=== PATIENT | female | born 1965 | race Caucasian/White ===

== ENCOUNTER 2019-03-12 06:47 | Observation (INO) | payer OTHER ==
[2019-03-12] MEDS ORDERED: NITROGLYCERIN 0.4 MG/TAB SL ONE (07:13)
[2019-03-12] MEDS ORDERED: ASPIRIN 81 MG CHEWABLE TABLET ONE (07:13)
[2019-03-12 07:48] LABS: Absolute Lymphocytes (CBC) 3.2 K/uL (0.7-4.9); Basophils % 0.7 % (0-1.3); Hematocrit 38.1 % (36.0-45.0); MPV 8.8 fL (7.6-11.3); RBC Red Blood Cell Count 4.01 M/uL (3.86-4.86)
[2019-03-12 07:59] LABS: Protime INR 1.04
[2019-03-12 08:03] LABS: ALT/SGPT 37 U/L (12-78); AST/SGOT 20 U/L (15-37); Albumin 3.8 g/dL (3.4-5.0); Alkaline Phosphatase 48 U/L (45-117); BUN Blood Urea Nitrogen 15 mg/dL (7-18); Bicarbonate 26 mmol/L (21-32); Bilirubin Direct 0.1 mg/dL (0-0.2); Bilirubin Total 0.4 mg/dL (0.2-1.0); Glucose Level 103 mg/dL (74-106); Lipase 368 U/L (73-393); Magnesium 2.4 mg/dL (1.8-2.4); NT PRO-BNP 13 pg/mL (<125); Potassium 3.9 mmol/L (3.5-5.1); Protein, Total 7.2 g/dL (6.4-8.2); Sodium Level 142 mmol/L (136-145); Troponin (Emerg Dept Use Only) < 0.02 ng/mL (0.0-0.045)
--- NOTE | 2019-03-12 08:24 | ER ---
Nurse's Notes [facility] Name: Ambar Figueroa Age: 53 yrs Sex: Female : 1965 Arrival Date: 03/12/2019 Time: 06:50 Bed 6 Private MD: Diagnosis: Chest pain, unspecified Presentation: 03/12 06:58 Presenting complaint: Patient states: Pt reports shortness of breath and chest pain at ea 0530. Reports they just came back from [facility] yesterday. Transition of care: patient was not received from another setting of care. Onset of symptoms was March 12, 2019. Risk Assessment: Do you want to hurt yourself or someone else? Patient reports no desire to harm self or others. Initial Sepsis Screen: Does the patient meet any 2 criteria? No. Patient's initial sepsis screen is negative. Does the patient have a suspected source of infection? No. Patient's initial sepsis screen is negative. Care prior to arrival: None. 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 - Coronavirus screen:: The patient has NOT traveled to [place], [place], or [place] in the past 14 days. - Social history:: Smoking status: Patient denies any tobacco usage or history of. - Ebola Screening: : No symptoms or risks identified at this time. Screenin:00 Abuse screen: Denies threats or abuse. Nutritional screening: No deficits noted. ea Tuberculosis screening: No symptoms or risk factors identified. Fall Risk None identified. Assessment: 07:05 General: Appears in no apparent distress. comfortable, Behavior is calm, cooperative, em appropriate for age. Pain: Complains of pain in chest Pain radiates to back Pain currently is 4 out of 10 on a pain scale. Pain began 2 hours ago. Neuro: Level of Consciousness is awake, alert, obeys commands, Oriented to person, place, time, situation, Appropriate for age. Cardiovascular: Reports nausea, shortness of breath, Capillary refill < 3 seconds Patient's skin is warm and dry. Rhythm is sinus rhythm. Respiratory: Airway is patent Respiratory effort is even, unlabored, Respiratory pattern is regular, symmetrical. GI: Abd is soft and non tender X 4 quads. Derm: Skin is intact, is healthy with good turgor, Skin is pink, warm \\T\\ dry. Musculoskeletal: Capillary refill < 3 seconds, Range of motion: intact in all extremities. 07:25 Reassessment: reports nitro helped chest pain, reports pain is "relaxed, not really in em pain," pt asked about doing a test for blood clots due to recent travel, provider notified of pt request. 08:44 Reassessment: Patient appears in no apparent distress at this time. Patient and/or em family updated on plan of care and expected duration. Pain level reassessed. Patient is alert, oriented x 3, equal unlabored respirations, skin warm/dry/pink. Patient denies pain at this time. Patient states feeling better. Patient states symptoms have improved. 09:00 Reassessment: Dr. Crisostomo at bedside. em 10:00 Reassessment: Patient appears in no apparent distress at this time. Patient and/or em family updated on plan of care and expected duration. Pain level reassessed. Patient is alert, oriented x 3, equal unlabored respirations, skin warm/dry/pink. Patient denies pain at this time. Vital Signs: 07:01 BP 147 / 58; Pulse 66; Resp 18; Temp 98; Pulse Ox 100% ; Weight 74.84 kg; Height 5 ft. ea 2 in. (157.48 cm); Pain 5/10; 07:12 BP 131 / 66; Pulse 60; em 07:22 BP 117 / 74; Pulse 65; em 08:30 BP 127 / 80; Pulse 57; Resp 16; Pulse Ox 100% on R/A; Pain 0/10; em 09:30 BP 147 / 80; Pulse 68; Resp 18; Pulse Ox 100% on R/A; Pain 0/10; em 10:30 BP 118 / 69; Pulse 54; Resp 18; Pulse Ox 100% on R/A; em 07:01 Body Mass Index 30.18 (74.84 kg, 157.48 cm) ED Course: 06:50 Patient arrived in ED. cl3 06:52 John Rogers PA is PHCP. jr8 06:52 Lance Sainz MD is Attending Physician. jr8 07:00 Triage completed. ea 07:00 Bubba Mercado, RN is Primary Nurse. em 07:01 Patient has correct armband on for positive identification. Placed in gown. Bed in low ea position. Call light in reach. 07:02 Arm band placed on right wrist. Patient placed in an exam room, on a stretcher, on ea pulse oximetry. 07:02 Patient maintains SpO2 saturation greater than 95% on room air. ea 07:05 quality assurance monitor chassis on. Pulse ox on. NIBP on. em 07:05 Warm blanket given. em 07:26 Attending Physician role handed off by Lance Sainz MD jr8 07:26 Truman Lao MD is Attending Physician. jr8 07:48 XRAY Chest (1 view) In Process Unspecified. EDMS 08:23 Iain Crisostomo DO is Hospitalizing Provider. jr8 12:16 Note: STRESS TEST COMPLETE. NO CHANGE IN PT STATUS. PT RETURNED TO ED. NURSE NOTIFIED. ethan2 AMANDART(N), MOVEMENT EDUCATION SPECIALIST. 12:37 Lexiscan stress test performed. tc 16:18 No provider procedures requiring assistance completed. IV discontinued, intact, em bleeding controlled, No redness/swelling at site. Pressure dressing applied. Administered Medications: 07:19 Drug: Aspirin Chewable Tablet 324 mg Route: PO; em 07:25 Follow up: Response: No adverse reaction em 07:20 Drug: Nitroglycerin 0.4 mg Route: Sublingual; em 07:25 Follow up: Response: No adverse reaction; Marked relief of symptoms; Pain is decreased em Outcome: 08:23 Decision to Hospitalize by Provider. jr8 16:18 Discharged to home ambulatory, with family. em 16:18 Condition: good 16:18 Discharge instructions given to patient, family, Instructed on discharge instructions, follow up and referral plans. medication usage, Demonstrated understanding of instructions, follow-up care, medications, Prescriptions given X 1. 16:58 Patient left the ED. aa5 Signatures: Dispatcher [employer] EDPA Renato Renee jb2 Bubba Mercado, RN KADEN em Tory Soares RN RN aa5 John Rogers PA PA jr8 Estelle Bright, assembly leader EKG Ttc Cyndy Pagan RN RN ea Lewis, Charde cl3
--- NOTE | 2019-03-12 08:24 | EDPHYS ---
Physician Documentation [facility] Name: Ambar Figueroa Age: 53 yrs Sex: Female : 1965 Arrival Date: 03/12/2019 Time: 06:50 Bed 6 Private MD: ED Physician Truman Lao HPI: 03/12 07:17 This 53 yrs old Female presents to ER via Ambulatory with complaints of Chest jr8 Pain, Shortness Of Breath. 07:17 The patient or guardian reports chest pain that is located primarily in the substernal jr8 area. Onset: acutely, today. The pain radiates to back. Associated signs and symptoms: Pertinent positives: nausea, shortness of breath. The chest pain is described as a pressure, sharp. Duration: The patient or guardian reports a single episode, that is still ongoing, but improving. Modifying factors: The symptoms are alleviated by nothing. the symptoms are aggravated by nothing. Severity of pain: At its worst the pain was moderate in the emergency department the pain has improved mildly. The patient has not experienced similar symptoms in the past. The patient has not recently seen a physician. Stated that she was woken up by pain in her chest this AM. Has never had this before. 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 - Coronavirus screen:: The patient has NOT traveled to [place], [place], or [place] in the past 14 days. - Social history:: Smoking status: Patient denies any tobacco usage or history of. - Ebola Screening: : No symptoms or risks identified at this time. ROS: 07:17 Eyes: Negative for injury, pain, redness, and discharge, ENT: Negative for injury, jr8 pain, and discharge, Neck: Negative for injury, pain, and swelling, Back: Negative for injury and pain, MS/Extremity: Negative for injury and deformity, Skin: Negative for injury, rash, and discoloration, Neuro: Negative for headache, weakness, numbness, tingling, and seizure. 07:17 Cardiovascular: Positive for chest pain, Negative for edema, orthopnea, palpitations, paroxysmal nocturnal dyspnea. 07:17 Respiratory: Positive for shortness of breath, Negative for cough, dyspnea on exertion. 07:17 Abdomen/GI: Positive for nausea, Negative for abdominal pain, vomiting, diarrhea, constipation, abdominal cramps, abdominal distension. Exam: 07:17 Eyes: Pupils equal round and reactive to light, extra-ocular motions intact. Lids and jr8 lashes normal. Conjunctiva and sclera are non-icteric and not injected. Cornea within normal limits. Periorbital areas with no swelling, redness, or edema. ENT: Nares patent. No nasal discharge, no septal abnormalities noted. Tympanic membranes are normal and external auditory canals are clear. Oropharynx with no redness, swelling, or masses, exudates, or evidence of obstruction, uvula midline. Mucous membranes moist. Neck: Trachea midline, no thyromegaly or masses palpated, and no cervical lymphadenopathy. Supple, full range of motion without nuchal rigidity, or vertebral point tenderness. No Meningismus. Cardiovascular: Regular rate and rhythm with a normal S1 and S2. No gallops, murmurs, or rubs. Normal PMI, no JVD. No pulse deficits. Respiratory: Lungs have equal breath sounds bilaterally, clear to auscultation and percussion. No rales, rhonchi or wheezes noted. No increased work of breathing, no retractions or nasal flaring. Abdomen/GI: Soft, non-tender, with normal bowel sounds. No distension or tympany. No guarding or rebound. No evidence of tenderness throughout. Back: No spinal tenderness. No costovertebral tenderness. Full range of motion. Skin: Warm, dry with normal turgor. Normal color with no rashes, no lesions, and no evidence of cellulitis. MS/ Extremity: Pulses equal, no cyanosis. Neurovascular intact. Full, normal range of motion. Neuro: Awake and alert, GCS 15, oriented to person, place, time, and situation. Cranial nerves II-XII grossly intact. Motor strength 5/5 in all extremities. Sensory grossly intact. Cerebellar exam normal. Normal gait. 08:20 ECG was reviewed by the Attending Physician. 8 Vital Signs: 07:01 BP 147 / 58; Pulse 66; Resp 18; Temp 98; Pulse Ox 100% ; Weight 74.84 kg; Height 5 ft. ea 2 in. (157.48 cm); Pain 5/10; 07:12 BP 131 / 66; Pulse 60; em 07:22 BP 117 / 74; Pulse 65; em 08:30 BP 127 / 80; Pulse 57; Resp 16; Pulse Ox 100% on R/A; Pain 0/10; em 09:30 BP 147 / 80; Pulse 68; Resp 18; Pulse Ox 100% on R/A; Pain 0/10; em 10:30 BP 118 / 69; Pulse 54; Resp 18; Pulse Ox 100% on R/A; em 07:01 Body Mass Index 30.18 (74.84 kg, 157.48 cm) ea MDM: 06:53 Patient medically screened. jr8 07:17 Differential diagnosis: abnormal EKG, acute myocardial infarction, acute pericarditis, jr8 anxiety, chest wall pain, costochondritis, esophagitis, gastritis, gastroesophageal reflux disease (GERD), myocarditis, pancreatitis, peptic ulcer disease, pericarditis, pleurisy, pneumonia, pulmonary embolus, stable angina, thoracic aortic disection, unstable angina. HEART Score: History: Moderately Suspicious (1), ECG: Non specific repolarization disturbance / LBTB / PM (1), Age: > 45 and < 65 years (1), Risk Factors: 1 or 2 risk factors (1), [Hypercholesterolemia] [Hypertension] Troponin: < or = 1 x Normal Limit (0), Total Score = 4. The patient was given aspirin in the Emergency Department. 07:26 The patient's pulmonary embolism risk score was calculated as follows: No Risks (0 Pts).jr8 08:20 Data reviewed: vital signs, nurses notes, lab test result(s), EKG, radiologic studies, jr8 plain films. Data interpreted: Pulse oximetry: on room air is 100 %. Interpretation: normal. Counseling: I had a detailed discussion with the patient and/or guardian regarding: the historical points, exam findings, and any diagnostic results supporting the discharge/admit diagnosis, lab results, radiology results, the need for further work-up and treatment in the hospital. 03/12 07:06 Order name: Basic Metabolic Panel; Complete Time: 08:07 8 03/12 07:06 Order name: CBC with Diff; Complete Time: 08:07 8 03/12 07:06 Order name: LFT's; Complete Time: 08:8 03/12 07:06 Order name: Magnesium; Complete Time: 08:07 03/12 07:06 Order name: NT PRO-BNP; Complete Time: 08:07 03/12 07:06 Order name: PT-INR; Complete Time: 08:03/12 07:06 Order name: Troponin (emerg Dept Use Only); Complete Time: 08:07 03/12 07:06 Order name: XRAY Chest (1 view); Complete Time: 09:35 03/12 07:06 Order name: EKG; Complete Time: 07:03/12 07:06 Order name: Lipase; Complete Time: 08:03/12 12:33 Order name: NM; Complete Time: 12:51 EDMS 03/12 13:51 Order name: US; Complete Time: 13:59 EDMS 03/12 07:06 Order name: Cardiac monitoring; Complete Time: 07:08 03/12 07:06 Order name: EKG - Nurse/Tech; Complete Time: 07:03/12 07:06 Order name: IV Saline Lock; Complete Time: 07:34 03/12 07:06 Order name: Labs collected and sent; Complete Time: 07:34 03/12 07:06 Order name: O2 Per Protocol; Complete Time: 07:03/12 07:06 Order name: O2 Sat Monitoring; Complete Time: 07:03/12 08:46 Order name: Diet Heart Healthy; Complete Time: 08:46 em EC:20 Rate is 63 beats/min. Rhythm is regular, Normal Sinus Rhythm. QRS [place] is Normal. NV jr8 interval is normal at 164 msec. QRS interval is normal at 74 msec. QT interval is normal at 421 msec. No Q waves. T waves are Inverted in leads III, aVF. T waves are Flattened in lead II. No ST changes noted. Clinical impression: NSR w/ Non-specific ST/T Changes. Interpreted by me. Reviewed by me. Administered Medications: 07:19 Drug: Aspirin Chewable Tablet 324 mg Route: PO; em 07:25 Follow up: Response: No adverse reaction em 07:20 Drug: Nitroglycerin 0.4 mg Route: Sublingual; em 07:25 Follow up: Response: No adverse reaction; Marked relief of symptoms; Pain is decreased em Disposition: 17:47 Co-signature as Attending Physician, Truman Lao MD I agree with the assessment and kdr plan of care. Disposition: 03/12/19 08:23 Hospitalization ordered by Iain Crisostomo for Observation. Preliminary diagnosis is Chest pain, unspecified. - Bed requested for Telemetry/MedSurg (observation). - Status is Observation. aa5 - Condition is Stable. - Problem is new. - Symptoms have improved. UTI on Admission? No Signatures: Dispatcher [employer] EDMS KeniaCharlene jaquez bd Truman Lao MD MD kdr Bubba Mercado, RN RN em Vonnie Jordan RN RN iw Tory Soares RN RN aa5 John Rogers PA PA jr8 Cyndy Pagan RN RN ea Corrections: (The following items were deleted from the chart) 11:12 08:23 Hospitalization Ordered by Iain Crisostomo DO for Observation. Preliminary bd diagnosis is Chest pain, unspecified. Bed requested for Telemetry/MedSurg (observation). Status is Observation. Condition is Stable. Problem is new. Symptoms have improved. UTI on Admission? No. jr8 13:08 11:12 03/12/2019 08:23 Hospitalization Ordered by Iain Kranthi COFFEY for Observation. bd Preliminary diagnosis is Chest pain, unspecified. Bed requested for [facility] ER HOLD. Status is Observation. Condition is Stable. Problem is new. Symptoms have improved. UTI on Admission? No. bd 13:09 13:08 03/12/2019 08:23 Hospitalization Ordered by Iain Crisostomo DO for Observation. bd Preliminary diagnosis is Chest pain, unspecified. Bed requested for Telemetry/MedSurg (observation). Status is Observation. Condition is Stable. Problem is new. Symptoms have improved. UTI on Admission? No. bd 15:32 13:09 03/12/2019 08:23 Hospitalization Ordered by Iain Kranthi COFFEY for Observation. iw Preliminary diagnosis is Chest pain, unspecified. Bed requested for Telemetry/MedSurg (observation). Status is Observation. Condition is Stable. Problem is new. Symptoms have improved. UTI on Admission? No. bd 16:58 15:32 03/12/2019 08:23 Hospitalization Ordered by Iain Kranthi COFFEY for Observation. aa5 Preliminary diagnosis is Chest pain, unspecified. Bed requested for Telemetry/MedSurg (observation). Status is Observation. Condition is Stable. Problem is new. Symptoms have improved. UTI on Admission? No. iw
--- NOTE | 2019-03-12 09:24 | P.HP ---
Certification for Inpatient Patient admitted to: Observation With expected LOS: <2 Midnights Patient will require the following post-hospital care: None Practitioner: I am a practitioner with admitting privileges, knowledge of patient current condition, hospital course, and medical plan of care. Services: Services provided to patient in accordance with Admission requirements found in Title 42 Section 412.3 of the Code of Federal Regulations Patient History Date of Service: 03/12/19 Primary Care Provider: Dr. Coleman Reason for admission: Chest pain History of Present Illness: 53-year-old female with history of hypertension, hyperlipidemia, hypothyroidism, and restless leg syndrome. Patient reports chest pain over the past several days. She recently traveled to [place]. She reported some chest pain at that time. It was mainly to the epigastric region of the chest. It radiated from the center to both sides bilateral. She would also have some pain to the back the would radiate to the front. She reported some nausea, flushing, and mild shortness of breath. Today she woke up with similar chest pain. She rated the pain about at 8/10. She came to the ER for further evaluation. In the ER patient was evaluated. Initial troponin unremarkable. EKG showed some T-wave inversions. CBC unremarkable. Sodium 142, potassium 3.9, creatinine 0.8 with a GFR 73. Patient was given nitroglycerin for pain. Pain resolved. Patient was admitted for further evaluation. When I saw the patient ER, she was without any chest pain. She did not appear septic. Patient appeared appropriate. Vital signs stable. Patient not tachycardic. Patient does not smoke. Patient reports seen Cardiology at [facility] several years ago. This was prior to a colonoscopy. No intervention was done at that time. There is family history of heart disease. Allergies No Known Allergies Allergy (Verified 11/22/12 15:41) Home medications list reviewed: Yes Home Medications: Aspirin 325 mg PO DAILY 11/22/12 Fenofibrate,Micronized [Fenofibrate] 130 mg PO DAILY 11/22/12 Metoprolol Succinate [Toprol Xl*] 25 mg PO DAILY 11/22/12 PARoxetine HCl [Paxil*] 40 mg PO DAILY 11/22/12 Ropinirole HCl [Requip*] 2 mg PO DAILY 11/22/12 Rosuvastatin [Crestor*] 10 mg PO BEDTIME 11/22/12 lisinopriL [Prinivil*] 10 mg PO DAILY 11/22/12 - Past Medical/Surgical History Diabetic: No -: HTN -: Hyperlipidemia -: Anxiety -: Restless leg syndrome -: Hypothyroidism -: Carpal tunnel surgery -: Tubal ligation -: Partial hysterectomy -: Bladder sling -: Rotator cuff repair Psychosocial/ Personal History: Patient is - Family History Father -: Heart disease - Social History Smoking Status: Never smoker Alcohol use: Yes CD- Drugs: No Caffeine use: Yes Place of Residence: Home Review of Systems General: As per HPI Eyes: Unremarkable ENT: Unremarkable Respiratory: Shortness of Breath, As per HPI Cardiovascular: Chest Pain, As per HPI Gastrointestinal: Nausea, As per HPI Genitourinary: Unremarkable Musculoskeletal: Pedal edema (Some edema noted to the lower extremity that is chronic. Left greater than right. Some varicosities noted), Unremarkable Integumentary: Unremarkable Neurological: Unremarkable Lymphatics: Unremarkable Physical Examination - Physical Exam General: Alert, In no apparent distress, Oriented x3, Cooperative HEENT: Atraumatic, Normocephalic, Mucous membr. moist/pink Neck: Supple, No Thyromegaly Respiratory: Clear to auscultation bilaterally, Normal air movement Cardiovascular: Normal pulses, Regular rate/rhythm Gastrointestinal: Normal bowel sounds, Soft and benign, Non-distended, No masses , No rebound, No guarding Musculoskeletal: No erythema, No tenderness, No warmth Integumentary: Tenderness/swelling (Mild edema to the left lower extremity with varicosities noted. Edema is reported as chronic.) Neurological: Normal speech, Normal strength at 5/5 x4 extr, Normal tone, Normal affect - Studies Laboratory Data (last 24 hrs) 03/12/19 07:22: PT 12.3, INR 1.04 03/12/19 07:22: WBC 8.1, Hgb 12.8, Hct 38.1, Plt Count 260 03/12/19 07:22: Sodium 142, Potassium 3.9, BUN 15, Creatinine 0.82, Glucose 103 , Magnesium 2.4, Total Bilirubin 0.4, AST 20, ALT 37, Alkaline Phosphatase 48, Lipase 368 Assessment and Plan - Plan Impression: Chest pain Hypertension Hyperlipidemia Hypothyroidism Restless leg syndrome Edema to the lower extremity left greater than right, chronic Anxiety Plan: Chest pain: Patient we admitted for further evaluation and treatment. Patient with multiple risk factors. Will order cardiac stress test to further evaluate. Will monitor telemetry and cardiac enzymes. Will also order echocardiogram and venous Doppler. Will consult cardiology for further recommendation. Will continue with aspirin, nitroglycerin, atenolol, Lipitor, fenofibrate and lisinopril. Await findings. Anticipate discharge in the next 24 hr pending clinical evaluation. Await recommendation by Cardiology. Hypertension: Continue with atenolol 50 mg 1 pill twice daily and lisinopril 10 mg daily. Hyperlipidemia: Will provide Lipitor 40 mg daily and fenofibrate 145 mg daily. Will check fasting lipid panel. Hypothyroidism: Continue with [place] Thyroid 75 mg daily. Will check tsh Restless leg syndrome: Continue with her medication. Edema to the lower extremity left greater than right, chronic: Suspect related to varicosities. Will check venous Doppler. Anxiety: Will continue with her medication as needed. Discharge Plan: Home Plan to discharge in: 24 Hours - Advance Directives Does patient have a Living Will: No Does patient have a Durable POA for Healthcare: No - Code Status/Comfort Care Code Status Assessed: Yes (Patient is full code) Time Spent Managing Pts Care (In Minutes): 55
--- NOTE | 2019-03-12 09:26 | RAD REPORT ---
EXAM DESCRIPTION: RAD - Chest Single View - 03/12/2019 7:50 am CLINICAL HISTORY: CHEST PAIN Chest pain. COMPARISON: CHEST SINGLE VIEW dated 11/22/2012 FINDINGS: Portable technique limits examination quality. The lungs are grossly clear. The heart is normal in size. No displaced fractures. IMPRESSION: No acute intrathoracic process suspected.
[2019-03-12] MEDS ORDERED: REGADENOSON 0.4 MG/5 ML SYR IV ONE (10:20)
--- NOTE | 2019-03-12 12:32 | RAD REPORT ---
EXAM DESCRIPTION: NM - Rest Stress Cardiac Imaging - 03/12/2019 12:24 pm CLINICAL HISTORY: CP Chest pain. COMPARISON: No comparisons TECHNIQUE: The patient was administered approximately 10mCi of Tc 99m Sestamibi prior to resting SPE CT imaging of the heart. The patient was then administered approximately 30 mCi of Tc 99m Sestamibi f ollowing exercise or pharmacologic stress. Multiplanar SPECT images were reviewed. FINDINGS: No stress induced ischemic defect is seen to suggest stress induced ischemia. No fixed def ect is seen to suggest hibernating myocardium or scarred myocardium. The end diastolic volume is 83 ml, the end systolic volume is 32 ml, and the ejection fraction is 62 %. IMPRESSION: No stress induced ischemia.
--- NOTE | 2019-03-12 12:44 | TREADPHA ---
DX: CHEST PAIN Date of Study: Ht: 5 2 Wt: 165 lb oz Consulting Physician: KAILA MEDICATIONS: HISTORY: 53 YEAR OLD FEMALE WITH HISTROY OF HYPERTENSION, HIGH CHOLESTEROL, HYPOTHYROID, NON SMOKER AND OCCASIONAL DRINKER. PHYSICIAL EXAMINATION: RESTING B.P.: 127/82 RESTING H.R.: 61 RESTING EKG: NORMAL SINUS RHYTHM, NON SPECIFIC T WAVE. PROTOCOL: LEXISCAN EXERCISE TIME: 3:30 B.P. AT PEAK STRESS: 123/67 IMPRESSION: LEXISCAN INJECTED, FOLLOWED BY CARDIOLITE PER PROTOCOL. SEE NUCLEAR MEDICINE REPORT. NO SUPRAVENTRICULAR TACHYCARDIA, VENTRICULAR TACHYCARDIA, PREMATURE ATRIAL COMPLEXES AND PREMATURE VENTRICULAR COMPLEXES. REPORTS NO CHEST PAIN.
--- NOTE | 2019-03-12 13:50 | RAD REPORT ---
EXAM DESCRIPTION: US - Extremity Venous Uni Ltd - 03/12/2019 1:17 pm CLINICAL HISTORY: DVT Leg swelling and edema. COMPARISON: No comparisons FINDINGS: Left lower extremity venous system was interrogated with Doppler technique. Normal flow, c ompressibility and augmentation was noted. There is no DVT present. IMPRESSION: No evidence of left lower extremity deep venous thrombosis.
--- NOTE | 2019-03-12 14:29 | P.DS ---
Admission Date: 03/12/19 Discharge Date: 03/12/19 Primary Care Provider: Dr. Coleman Disposition: ROUTINE DISCHARGE Discharge Condition: GOOD Reason for Admission: Chest pain Consultations: Cardiology-Dr. Britt Procedures: ECHO: Obtained Cardiac stress test: COMPARISON: No comparisons TECHNIQUE: The patient was administered approximately 10mCi of Tc 99m Sestamibi prior to resting SPECT imaging of the heart. The patient was then administered approximately 30 mCi of Tc 99m Sestamibi following exercise or pharmacologic stress. Multiplanar SPECT images were reviewed. FINDINGS: No stress induced ischemic defect is seen to suggest stress induced ischemia. No fixed defect is seen to suggest hibernating myocardium or scarred myocardium. The end diastolic volume is 83 ml, the end systolic volume is 32 ml, and the ejection fraction is 62 %. IMPRESSION: No stress induced ischemia. Venous doppler: Leg swelling and edema. COMPARISON: No comparisons FINDINGS: Left lower extremity venous system was interrogated with Doppler technique. Normal flow, compressibility and augmentation was noted. There is no DVT present. IMPRESSION: No evidence of left lower extremity deep venous thrombosis. Chest x-ray: COMPARISON: CHEST SINGLE VIEW dated 11/22/2012 FINDINGS: Portable technique limits examination quality. The lungs are grossly clear. The heart is normal in size. No displaced fractures. IMPRESSION: No acute intrathoracic process suspected. Medical Problem List: Chest pain, possible GERD Hypertension Hyperlipidemia Hypothyroidism Restless leg syndrome Edema to the lower extremity left greater than right, chronic Anxiety Brief History of Present Illness: 53-year-old female with history of hypertension, hyperlipidemia, hypothyroidism, and restless leg syndrome. Patient reports chest pain over the past several days. She recently traveled to [place]. She reported some chest pain at that time. It was mainly to the epigastric region of the chest. It radiated from the center to both sides bilateral. She would also have some pain to the back the would radiate to the front. She reported some nausea, flushing, and mild shortness of breath. Today she woke up with similar chest pain. She rated the pain about at 8/10. She came to the ER for further evaluation. In the ER patient was evaluated. Initial troponin unremarkable. EKG showed some T-wave inversions. CBC unremarkable. Sodium 142, potassium 3.9, creatinine 0.8 with a GFR 73. Patient was given nitroglycerin for pain. Pain resolved. Patient was admitted for further evaluation. When I saw the patient ER, she was without any chest pain. She did not appear septic. Patient appeared appropriate. Vital signs stable. Patient not tachycardic. Patient does not smoke. Patient reports seen Cardiology at [facility] several years ago. This was prior to a colonoscopy. No intervention was done at that time. There is family history of heart disease. Hospital Course: Patient presented with chest pain. Patient was admitted for further evaluation and treatment. Cardiology was consulted. Echocardiogram obtained. Cardiac stress test also performed. Cardiac stress test no stress-induced ischemia. Chest pain has resolved. Chest pain may be GERD related. At discharge will recommend to continue with Pepcid 20 mg 1 pill twice daily. Patient may benefit with GI evaluation as an outpatient to further evaluate. At discharge she will continue her home medications of aspirin, atenolol, crestor, fenofibrate and lisinopril. Recommend follow up with cardiology in 1-2 weeks to follow up this hospitalization. Recommend follow up with PCP in 1-2 weeks as well. Patient with hypertension. This has remained stable. At discharge patient will continue with atenolol and lisinopril. Recommend to maintain blood pressures less 150/80. Further adjustment can be done by her PCP. Patient with hyperlipidemia. At discharge she will continue with Crestor and fenofibrate. Patient with hypothyroidism. At discharge she will continue with [place] Thyroid 75 mg daily. Patient with restless leg syndrome. At discharge she may continue with her medication. Patient with depression with anxiety. At discharge she will continue with her medication. Patient has reported some chronic edema to the lower extremities left greater than right. Venous Doppler performed. No DVT noted. Patient likely has underlying varicosities. Patient may benefit with vein specialist to further address. General: Alert, In no apparent distress, Oriented x3, Cooperative HEENT: Atraumatic Neck: Supple Respiratory: Clear to auscultation bilaterally, Normal air movement Cardiovascular: Normal pulses, Regular rate/rhythm Gastrointestinal: Normal bowel sounds, Soft and benign, Non-distended, No masses , No rebound, No guarding Musculoskeletal: No erythema, No tenderness, No warmth Integumentary: No tenderness/swelling, No erythema, No warmth, No cyanosis Neurological: Normal speech, Normal strength at 5/5 x4 extr, Normal tone, Normal affect Laboratory Data at Discharge: WBC 8.1 K/uL (4.3-10.9) 03/12/19 07:22 Hgb 12.8 g/dL (12.0-15.0) 03/12/19 07:22 Hct 38.1 % (36.0-45.0) 03/12/19 07:22 Plt Count 260 K/uL (152-406) 03/12/19 07:22 PT 12.3 SECONDS (9.5-12.5) 03/12/19 07:22 INR 1.04 03/12/19 07:22 Sodium 142 mmol/L (136-145) 03/12/19 07:22 Potassium 3.9 mmol/L (3.5-5.1) 03/12/19 07:22 BUN 15 mg/dL (7-18) 03/12/19 07:22 Creatinine 0.82 mg/dL (0.55-1.3) 03/12/19 07:22 Glucose 103 mg/dL (74-106) 03/12/19 07:22 Magnesium 2.4 mg/dL (1.8-2.4) 03/12/19 07:22 Total Bilirubin 0.4 mg/dL (0.2-1.0) 03/12/19 07:22 AST 20 U/L (15-37) 03/12/19 07:22 ALT 37 U/L (12-78) 03/12/19 07:22 Alkaline Phosphatase 48 U/L (45-117) 03/12/19 07:22 Lipase 368 U/L (73-393) 03/12/19 07:22 Home Medications: Aspirin 325 mg PO DAILY 11/22/12 Fenofibrate,Micronized [Fenofibrate] 130 mg PO DAILY 11/22/12 Metoprolol Succinate [Toprol Xl*] 25 mg PO DAILY 11/22/12 PARoxetine HCl [Paxil*] 40 mg PO DAILY 11/22/12 Ropinirole HCl [Requip*] 2 mg PO DAILY 11/22/12 Rosuvastatin [Crestor*] 10 mg PO BEDTIME 11/22/12 lisinopriL [Prinivil*] 10 mg PO DAILY 11/22/12 Famotidine [Pepcid] 20 mg PO BID #60 tab 03/12/19 New Medications: Famotidine [Pepcid] 20 mg PO BID #60 tab Patient Discharge Instructions: 1. Recommend follow up with PCP in 1 week to follow up this hospitalization. 2. Patient presented with chest pain. Patient was admitted for further evaluation and treatment. Cardiology was consulted. Echocardiogram obtained. Cardiac stress test also performed. Cardiac stress test no stress-induced ischemia. Chest pain has resolved. Chest pain may be GERD related. At discharge will recommend to continue with Pepcid 20 mg 1 pill twice daily. Patient may benefit with GI evaluation as an outpatient to further evaluate. At discharge she will continue her home medications of aspirin, atenolol, crestor, fenofibrate and lisinopril. Recommend follow up with cardiology in 1-2 weeks to follow up this hospitalization. Recommend follow up with PCP in 1-2 weeks as well. 3. Patient with hypertension. This has remained stable. At discharge patient will continue with atenolol and lisinopril. Recommend to maintain blood pressures less 150/80. Further adjustment can be done by her PCP. 4. Patient with hyperlipidemia. At discharge she will continue with Crestor and fenofibrate. 5. Patient with hypothyroidism. At discharge she will continue with [place] Thyroid 75 mg daily. 6. Patient with restless leg syndrome. At discharge she may continue with her medication. 7. Patient with depression with anxiety. At discharge she will continue with her medication. 8. Patient has reported some chronic edema to the lower extremities left greater than right. Venous Doppler performed. No DVT noted. Patient likely has underlying varicosities. Patient may benefit with vein specialist to further address. Diet: AHA Activity: Ad jesus Time spent managing pt's care (in minutes): 55
[2019-03-12] MEDS ORDERED: clonazePAM 0.5 MG TAB PO PRN (14:55)
[2019-03-12] MEDS ORDERED: NITROGLYCERIN 0.4 MG/TAB SL PRN (14:55)
[2019-03-12] MEDS ORDERED: ONDANSETRON 4 MG/2 ML VIAL IV PRN (14:55)
[2019-03-12] MEDS ORDERED: ACETAMINOPHEN 500 MG TAB PO PRN (14:55)
--- NOTE | 2019-03-12 15:55 | EKG ---
Test Date: 2019-03-12 Test Time: 07:00:11 [employer]ician [employer] Equipment: JESSICA MEASUREMENT RESULTS: Intervals: Rate: 63 WV: 164 QRSD: 74 QT: 412 QTc: 421 Rainbow: P: 54 WV: 164 QRS: 18 T: -21 INTERPRETIVE STATEMENTS: Normal sinus rhythm T wave abnormality, consider inferior ischemia Abnormal ECG Compared to ECG 11/23/2012 07:27:36 Possible ischemia now present Left ventricular hypertrophy no longer present Prolonged QT interval no longer present T-wave abnormality still present Electronically Signed On 03-12-19 15:51:58 [employer] WORK[employer] by Anthony Britt
[2019-03-12] MEDS ORDERED: ENOXAPARIN 40 MG/0.4 ML SQ SCH (17:00)
[2019-03-12 17:15] VITALS: TEMP 98; O2SAT 100
[2019-03-12 17:22] VITALS: BP 118/69
[2019-03-12] MEDS ORDERED: ATORVASTATIN 40 MG TAB PO SCH (21:00)
[2019-03-12] MEDS ORDERED: atenoloL 50 MG TAB PO SCH (21:00)
[2019-03-12] MEDS ORDERED: lisinopriL 10 MG TAB PO SCH (21:00)
[2019-03-12] MEDS ORDERED: PRAMIPEXOLE 0.25 MG TAB PO SCH (21:00)
--- NOTE | 2019-03-12 21:49 | CON ---
Date of Consultation: 03/12/[address] Crisostomo on 03/12/2019. I saw the patient on 03/12/2019. Reason For Consultation: Chest pain. History Of Present Illness: Ms. Figueroa is a 53-year-old woman. She has a history of hypertension an d dyslipidemia, came in with pain that woke her up from sleep. It was sharp, stabbing, radiating to the right shoulders. No nausea, vomiting, diaphoresis, PND, orthopnea, pedal edema, palpitation, or syncope. By the time I saw her, she was already ruled out for an MD. She already had a stress test, results of that are pending. Past Medical History: Otherwise as stated earlier. Review of Systems: Negative. Social History: Negative. Family History: Noncontributory. Allergies: NONE. Medications At Home: Aspirin, Pepcid, fenofibrate, Toprol-XL, Paxil, Requip, Crestor, and Prinivil. Physical Examination: Vital Signs: Stable. Afebrile. HEENT: Negative. Neck: Supple without any bruit, lymphadenopathy, JVD, or thyromegaly. Chest: Clear to auscultation and percussion. Cardiac: Normal rhythm and rate. No murmurs, gallops or rubs. Abdomen: Benign. Extremities: No clubbing, cyanosis, or edema. Diagnostic Data: All normal. Impression And Plan: Atypical chest pain. EKG shows some nonspecific changes. Troponin is negative . BNP is negative. She has many cardiac risk factors including her age, her dyslipidemia, her hyper tension. I think a stress test is reasonable. So far, the stress test results are pending, but if t hat is negative as far as I am concerned she can go home. Ms. Figueroa also had complained of some lef t lower extremity bruising and swelling and a left lower extremity venous Doppler was done and that w as negative. We will await the results of the stress test and then she can go home after that if it is negative. The case was discussed with Dr. Crisostomo. SUSAN/KADENL Voice ID: [id number] Report ID: [id number]
[2019-03-13] MEDS ORDERED: THYROID 30 MG TAB PO SCH (06:00)
[2019-03-13] MEDS ORDERED: FENOFIBRATE 160 MG TAB PO SCH (09:00)
[2019-03-13] MEDS ORDERED: ASPIRIN EC 81 MG TAB PO SCH (09:00)
== END 2019-03-12 15:00 | disposition home or self-care (01) ==
LOC: ER 06:47 → ERHOLD 09:09
PROVIDERS: ADMIT Family Medicine; ATTEND Family Medicine
DX: R07.9 Chest pain, unspecified (principal); I10 Essential (primary) hypertension; E78.5 Hyperlipidemia, unspecified; E03.9 Hypothyroidism, unspecified; G25.81 Restless legs syndrome; R60.9 Edema, unspecified; F41.9 Anxiety disorder, unspecified
CPT/HCPCS: 93005; 93017; 85025; 80048; 36415; 83735; 85610; 80076; 84484; 83690; 83880; 71045; 93971; 78452; 99285; J2785; A9500